=== PATIENT | female | born 1970 | race Caucasian/White ===

== ENCOUNTER 2021-01-25 06:31 | Observation (INO) | payer BC ==
[2021-01-22 11:07] LABS: BLOOD UREA NITROGEN,BUN 14 mg/dL (7.0-18.0); CARBON DIOXIDE,CO2 26.8 mmol/L (21.0-32.0); CHLORIDE,CL 101 mmol/L (98-107); GLUCOSE RANDOM 75 mg/dL (74-106); POTASSIUM,K 4.5 mmol/L (3.5-5.1); SODIUM,NA 137 mmol/L (136-145)
[2021-01-25] MEDS ORDERED: Metoclopramide 10 MG/2 ML SDV IVPUSH PRN (06:59)
[2021-01-25] MEDS ORDERED: Ondansetron 4 MG/2 ML SDV IVPUSH PRN ×2 (06:59→10:06)
[2021-01-25] MEDS ORDERED: Albuterol 0.083% 2.5 MG/3 ML Neb Soln NEB PRN (06:59)
[2021-01-25] MEDS ORDERED: HYDROmorphone 1 MG/ML Syringe IVPUSH PRN (06:59)
[2021-01-25] MEDS ORDERED: fentaNYL 100 MCG/2 ML SDV IVPUSH PRN (06:59)
[2021-01-25] MEDS ORDERED: Naloxone 0.4 MG/ML SDV IVPUSH PRN (06:59)
[2021-01-25] MEDS ORDERED: Morphine 4 MG/ML VIAL IVPUSH PRN (06:59)
[2021-01-25] MEDS ORDERED: Scopolamine 1.5 MG Transdermal Patch ONE (07:08)
--- NOTE | 2021-01-25 07:12 | PCM.PREANE ---
Preanesthetic Assessment - Anesthesia/Transfusion/Family Hx Anesthesia History: Prior Anesthesia Without Reaction Transfusion History: No Prior Transfusion(s) - Review of Systems General: No Symptoms Pulmonary: No Symptoms Cardiovascular: No Symptoms Gastrointestinal: No Symptoms Neurological: No Symptoms Other: Reports: None - Physical Assessment NPO Status Date: 01/25/21 NPO Status Time: 00:00 Vital Signs: Last Vital Signs Temp 98.2 F 01/25/21 06:44 Pulse 51 L 01/25/21 06:44 Resp 14 01/25/21 06:44 BP 134/85 01/25/21 06:44 Pulse Ox 96 01/25/21 06:44 Height: 5 ft 5.25 in Weight: 190 lb Mental Status: Alert & Oriented x3 Dentition: Reports: Normal Dentition Thyro-Mental Finger Breadths: 3 Mouth Opening Finger Breadths: 3 ROM/Head Extension: Full Lungs: Clear to Auscultation, Normal Respiratory Effort Cardiovascular: Regular Rate, Regular Rhythm - Lab Values: Laboratory Last Values WBC 8.41 K/uL (4.0-11.0) 01/22/21 10:17 RBC 4.68 M/uL (4.30-5.90) 01/22/21 10:17 Hgb 14.3 g/dL (12.0-16.0) 01/22/21 10:17 Hct 41.6 % (36.0-46.0) 01/22/21 10:17 MCV 88.9 fL (80.0-98.0) 01/22/21 10:17 MCH 30.6 pg (27.0-32.0) 01/22/21 10:17 MCHC 34.4 g/dL (31.0-37.0) 01/22/21 10:17 RDW Std Deviation 42.6 fl (28.0-62.0) 01/22/21 10:17 RDW Coeff of Darius 13 % (11.0-15.0) 01/22/21 10:17 Plt Count 341 K/uL (150-400) 01/22/21 10:17 MPV 10.50 fL (7.40-12.00) 01/22/21 10:17 Nucleated RBC % 0.0 /100WBC 01/22/21 10:17 Nucleated RBCs # 0 K/uL 01/22/21 10:17 Sodium 137 mmol/L (136-145) 01/22/21 10:13 Potassium 4.5 mmol/L (3.5-5.1) 01/22/21 10:13 Chloride 101 mmol/L (98-107) 01/22/21 10:13 Carbon Dioxide 26.8 mmol/L (21.0-32.0) 01/22/21 10:13 BUN 14 mg/dL (7.0-18.0) 01/22/21 10:13 Creatinine 0.6 mg/dL (0.6-1.0) 01/22/21 10:13 Est Cr Clr Drug Dosing 101.96 mL/min 01/22/21 10:13 Estimated GFR (MDRD) > 60.0 ml/min 01/22/21 10:13 Glucose 75 mg/dL (74-106) 01/22/21 10:13 Calcium 9.1 mg/dL (8.5-10.1) 01/22/21 10:13 HCG, Qual NEGATIVE (NEG) 01/22/21 10:13 Blood Type B POSITIVE 01/22/21 10:13 Antibody Screen NEGATIVE 01/22/21 10:13 - Allergies Allergies/Adverse Reactions: Allergies Allergy/AdvReac Type Severity Reaction Status Date / Time No Known Allergies Allergy Verified 01/25/21 07:01 - Acknowledgements Anesthesia Type Planned: General Anesthesia Pt an Appropriate Candidate for the Planned Anesthesia: Yes Alternatives and Risks of Anesthesia Discussed w Pt/Guardian: Yes Pt/Guardian Understands and Agrees with Anesthesia Plan: Yes PreAnesthesia Questionnaire HEENT History: Reports: Other (See Below) Other HEENT History: wears glasses/contacts Cardiovascular History: Reports: Hypertension Respiratory History: Reports: None Gastrointestinal History: Reports: None Genitourinary History: Reports: Urinary Incontinence FLAT SURFACER History: Reports: Dysfunctional Uterine Bleeding, Musculoskeletal History: Reports: Back Pain, Chronic, Fracture Other Musculoskeletal History: hx of fx right ankle Neurological History: Reports: None Psychiatric History: Reports: Anxiety, Depression Endocrine/Metabolic History: Reports: Obesity/BMI 30+ Hematologic History: Reports: None Immunologic History: Reports: None Oncologic (Cancer) History: Reports: None Dermatologic History: Reports: None - Infectious Disease History Infectious Disease History: Reports: Chicken Pox, Measles - Past Surgical History Head Surgeries/Procedures: Reports: None HEENT Surgical History: Reports: None Cardiovascular Surgical History: Reports: None Respiratory Surgical History: Reports: None GI Surgical History: Reports: Cholecystectomy Female Surgical History: Reports: Breast Reduction Endocrine Surgical History: Reports: None Neurological Surgical History: Reports: None Musculoskeletal Surgical History: Reports: Other (See Below) Other Musculoskeletal Surgeries/Procedures:: excision of shoulder lipoma - SUBSTANCE USE Tobacco Use Status *Q: Never Tobacco User Recreational Drug Use History: Yes Recreational Drug Type: Reports: Marijuana/Hashish - HOME MEDS Home Medications: Home Meds Celecoxib [CeleBREX] 100 mg PO BID 01/19/21 [History] Phentermine HCl 37.5 mg PO DAILY 01/19/21 [History] SUMAtriptan [Imitrex] 100 mg PO ONETIME PRN 01/19/21 [History] Venlafaxine [Venlafaxine HCl ER] 150 mg PO DAILY 01/19/21 [History] amLODIPine [Norvasc] 5 mg PO BEDTIME 01/19/21 [History] valACYclovir [Valtrex] 1,000 mg PO BID PRN 01/19/21 [History] - CURRENT (IN HOUSE) MEDS Current Meds: Current Medications Albuterol (Albuterol 0.083% 2.5 Mg/3 Ml Neb Soln) 2.5 mg NEB ONETIME PRN PRN Reason: Wheezing Droperidol (Droperidol 5 Mg/2 Ml Sdv) 0.625 mg IVPUSH ONETIME PRN PRN Reason: Nausea/Vomiting Fentanyl (Fentanyl 100 Mcg/2 Ml Sdv) 50 mcg IVPUSH Q5M PRN PRN Reason: Pain (mild 1-3) Hydromorphone HCl (Hydromorphone 1 Mg/Ml Syringe) 1 mg IVPUSH Q10M PRN PRN Reason: Pain (moderate 4-6) Lactated Ringer's (Ringers, Lactated) 1,000 mls @ 125 mls/hr IV ASDIRECTED [facility] Last Admin: 01/25/21 07:06 Dose: 125 mls/hr Documented by: Metoclopramide HCl (Metoclopramide 10 Mg/2 Ml Sdv) 10 mg IVPUSH ONETIME PRN PRN Reason: Nausea/Vomiting Morphine Sulfate (Morphine 4 Mg/Ml Vial) 2 mg IVPUSH Q10M PRN PRN Reason: Pain (severe 7-10) Naloxone HCl (Naloxone 0.4 Mg/Ml Sdv) 0.1 mg IVPUSH ASDIRECTED PRN PRN Reason: Respiratory Depression Ondansetron HCl (Ondansetron 4 Mg/2 Ml Sdv) 4 mg IVPUSH ONETIME PRN PRN Reason: Nausea/Vomiting Discontinued Medications Scopolamine (Scopolamine 1.5 Mg Transdermal Patch) Confirm Administered Dose 1.5 mg .ROUTE .[facility] ONE Stop: 01/25/21 07:09
[2021-01-25] MEDS ORDERED: Lactated Ringers 1,000 ML IV SCH (07:15)
[2021-01-25] MEDS ORDERED: Methylene Blue 50 MG/10 ML Ampule ONE (07:19)
[2021-01-25] MEDS ORDERED: Bupivacaine 0.5% 30 ML SDV ONE (07:19)
[2021-01-25] MEDS ORDERED: Bupivacaine 0.25% 10 ML SDV ONE (07:19)
[2021-01-25] MEDS ORDERED: fentaNYL 100 MCG/2 ML SDV ONE (07:21)
[2021-01-25] MEDS ORDERED: Lidocaine 2% 5 ML SDV ONE ×2 (07:21→07:31)
[2021-01-25] MEDS ORDERED: Ondansetron 4 MG/2 ML SDV ONE (07:21)
[2021-01-25] MEDS ORDERED: Propofol 200 MG/20 ML SDV ONE (07:21)
[2021-01-25] MEDS ORDERED: Sugammadex Sodium 200 MG/2 ML VIAL ONE (07:21)
[2021-01-25] MEDS ORDERED: Dexamethasone 4 MG/ML 5 ML MDV ONE (07:21)
[2021-01-25] MEDS ORDERED: Midazolam 1 MG/ML 2 ML SDV ONE (07:21)
[2021-01-25] MEDS ORDERED: Rocuronium Bromide 50 MG/5 ML Syringe ONE (07:21)
[2021-01-25] MEDS ORDERED: Bupivacaine 25%/EPINEPHrine/PF 30 ML ONE (07:54)
[2021-01-25] MEDS ORDERED: ePHEDrine 50 MG/ML SDV ONE (08:26)
[2021-01-25] MEDS ORDERED: HYDROmorphone 2 MG/ML Syringe ONE (08:40)
[2021-01-25] MEDS ORDERED: Fluorescein 5 ML Vial ONE (09:16)
[2021-01-25] MEDS ORDERED: Furosemide 40 MG/4 ML VIAL ONE (09:21)
[2021-01-25] MEDS ORDERED: Lidocaine 1% 20 ML MDV ONE (09:25)
[2021-01-25] MEDS ORDERED: Neomycin/Polymyxin B Bladder Irrigation 1 ML Amp ONE (09:27)
[2021-01-25] MEDS ORDERED: Octyl 2-Cyanoacrylate 1 Tube ONE (09:50)
[2021-01-25] MEDS ORDERED: Ketorolac 30 MG/ML SDV ONE (10:00)
[2021-01-25] MEDS ORDERED: Ketorolac 30 MG/ML SDV IVPUSH ONE (10:06)
[2021-01-25] MEDS ORDERED: Promethazine 25 MG/ML SDV IM PRN (10:06)
[2021-01-25] MEDS ORDERED: Acetaminophen/oxyCODONE 325-5 MG Tab PO PRN (10:06)
[2021-01-25] MEDS ORDERED: SUMAtriptan 50 MG Tab PO PRN (10:09)
--- NOTE | 2021-01-25 10:14 | PCM.OPNOTE ---
- General Post-Op/Procedure Note Date of Surgery/Procedure: 01/25/21 Operative Procedure(s): Total vaginal hysterectomy. Transobturator Mid-Urethral Sling System placement. Cystoscopy Findings: Normal-appearing uterus, ovaries, fallopian tubes Bilateral ureteral efflux Pre Op Diagnosis: 50yo with abnormal uterine bleeding and stress urinary incontinence Post-Op Diagnosis: Same Anesthesia Technique: General ET Tube Primary Surgeon: Karen Barnett Insole Buffer: Rhonda Heredia Pathology: Uterus, cervix Fluid Replacement, Intraop: 1,500 Output, Urine Amount: 150 EBL in mLs: 600 Complications: None Condition: Good Free Text/Narrative:: 2g Ancef IV antibiotic prophylaxis given prior to procedure
--- NOTE | 2021-01-25 10:25 | PCM.POSTAN ---
POST ANESTHESIA ASSESSMENT - MENTAL STATUS Mental Status: Alert, Oriented - VITAL SIGNS Vital Signs: Last Vital Signs Temp 98.2 F 01/25/21 06:44 Pulse 51 L 01/25/21 06:44 Resp 14 01/25/21 06:44 BP 134/85 01/25/21 06:44 Pulse Ox 96 01/25/21 06:44 - RESPIRATORY Respiratory Status: Respiratory Rate WNL, Airway Patent, O2 Saturation Stable - CARDIOVASCULAR CV Status: Pulse Rate WNL, Blood Pressure Stable - GASTROINTESTINAL GI Status: No Symptoms - POST OP HYDRATION Hydration Status: Adequate & Stable
--- NOTE | 2021-01-25 10:26 | PCM48HPAN ---
Post Anesthesia Note - EVALUATION WITHIN 48HRS OF ANESTHETIC Vital Signs in Normal Range: Yes Patient Participated in Evaluation: Yes Respiratory Function Stable: Yes Airway Patent: Yes Cardiovascular Function Stable: Yes Hydration Status Stable: Yes Pain Control Satisfactory: Yes Nausea and Vomiting Control Satisfactory: Yes Mental Status Recovered: Yes Vital Signs: Last Vital Signs Temp 98.2 F 01/25/21 06:44 Pulse 51 L 01/25/21 06:44 Resp 14 01/25/21 06:44 BP 134/85 01/25/21 06:44 Pulse Ox 96 01/25/21 06:44
[2021-01-25] MEDS: Acetaminophen/oxyCODONE 325-5 MG Tab PO PRN ×3 (11:28→21:55)
[2021-01-25] MEDS: Morphine 4 MG/ML VIAL IVPUSH PRN ×2 (12:30→14:40)
[2021-01-25] MEDS ORDERED: Ketorolac 30 MG/ML SDV IVPUSH PRN (16:00)
--- NOTE | 2021-01-25 17:12 | PCM.SN.2 ---
- Free Text/Narrative Note: Patient currently sleeping. Per RN, pain has been well controlled. She has ambulated in her room. Small amount of bleeding. Has had water without nausea. Plan voiding trial and labs in AM. Encourage ambulation overnight.
[2021-01-25] MEDS ORDERED: Venlafaxine 75 MG Cap.ER PO SCH ×2 (20:00→21:00)
[2021-01-25] MEDS: Docusate Sodium 100 MG Cap PO SCH (20:24)
[2021-01-25] MEDS ORDERED: amLODIPine 5 MG Tab PO SCH (21:00)
[2021-01-26] MEDS: Acetaminophen/oxyCODONE 325-5 MG Tab PO PRN (04:39)
[2021-01-26 07:19] LABS: BLOOD UREA NITROGEN,BUN 8 mg/dL (7.0-18.0); CARBON DIOXIDE,CO2 28.8 mmol/L (21.0-32.0); CHLORIDE,CL 101 mmol/L (98-107); GLUCOSE RANDOM 93 mg/dL (74-106); POTASSIUM,K 4.4 mmol/L (3.5-5.1); SODIUM,NA 136 mmol/L (136-145)
--- NOTE | 2021-01-26 07:44 | OR ---
SURGEON: Karen Barnett MD DATE OF PROCEDURE: 01/25/2021 PREOPERATIVE DIAGNOSES: 1. Abnormal uterine bleeding. 2. Stress urinary incontinence. POSTOPERATIVE DIAGNOSES: 1. Abnormal uterine bleeding. 2. Stress urinary incontinence. PROCEDURE: 1. Total vaginal hysterectomy. 2. Cystoscopy. 3. Transobturator vaginal taping, Obtryx II system. PRIMARY SURGEON: Karen Barnett MD. GOVERNMENT PROGRAM MANAGER: Rhonda Heredia MD ANESTHESIA: General endotracheal. COMPLICATIONS: None. ESTIMATED BLOOD LOSS: 600 mL. URINE OUTPUT: 150 mL. ANTIBIOTICS: 2 g of Ancef IV. IV FLUIDS: 1500 mL LR. FINDIN. Normal-appearing uterus, ovaries, and fallopian tubes. 2. Bilateral ureteral efflux. PROCEDURE IN DETAIL: Risks, benefits, and alternatives of the procedure were reviewed with the patient prior to the procedure. The patient was taken to the operating room with IV fluids running. General anesthesia was obtained without difficulty. She was placed in dorsal lithotomy position with legs in Yellofins stirrups. She was prepared and draped in normal sterile fashion. Garrido catheter was inserted. A weighted speculum was inserted into the vagina, and the cervix grasped with a Alaina tenaculum. The cervix was circumferentially incised with the Bovie and the bladder dissected off pubovesicocervical fascia anteriorly with an open sponge. The posterior cul-de-sac was entered sharply using curved Light scissors without difficulty. The anterior cul-de-sac was then entered sharply using the Metzenbaum scissors. At this point, a Patricia clamp was placed over the uterosacral ligament on either side. These were then transected and suture ligated with 2-0 Vicryl suture. The cardinal ligaments were then clamped on both sides, transected and suture ligated in a similar fashion. The right uterine artery was transected and noted to be bleeding. This was grasped with an additional Patricia clamp and incorporated into the next bite of the broad ligament. Hemostasis was thus obtained. Both cornu were then clamped with Patricia clamps, transected and the uterus delivered through the vagina. These pedicles were then suture ligated with 0 Vicryl suture, good hemostasis was noted. The ovaries and fallopian tubes appeared normal. The vaginal cuff angles were transfixed to the uterosacral ligament. The vaginal cuff was closed with a vertical running lock stitch of 0 Vicryl suture. All instruments were removed from the vagina. A 70-degree cystoscope was introduced through the urethra into the bladder. The ureteral orifices were noted bilaterally to efflux fluorescein-stained urine. Systematic inspection of bladder was completed and there were no obvious lesions. Along the adductor longus muscle, directly below this was seen and was palpated in the symphysis pubis and was marked with marking pen on the either side. Region was now infiltrated with 1% lidocaine and 0.25% bupivacaine diluted in saline. This region along with the region directly behind the pubic bone was now infiltrated with local anesthetic. The vagina directly below the urethral meatus was grasped with an Allis clamp and was infiltrated with local anesthetic as well as in the periurethral spaces. Approximately 1.5 cm midline vaginal incision was made using the scalpel and incisions were created over the region of the markings done on either side with an 11 blade scalpel. The periurethral space on either side was dissected sharply and bluntly until medial aspect of the bone was palpated. The right finger was introduced into the right vaginal incision until the medial aspect of the pubic bone was palpated and the Obtryx introduced, it was aligned with the right groin incision. Introducer was placed through the incision perforating transobturator membrane and muscle rotating behind the pubic bone and exiting through the right side of the vaginal incision. The sulcus was inspected and found to be intact. In a similar fashion, this was performed on the patient's left side. Once again, sulcus was inspected, found to be intact. The tape on either side was now irrigated with Neosporin saline solution. The stabilizer was clipped and trimmed midline. Overlying sheaths were removed. The tape was tented downward in the midline with gently tightening. The bladder was back filled with 240 mL of saline. The catheter was removed, with Valsalva, I was able to gently tighten the tape until the leakage was no longer evident. Once the tube was felt to be satisfactorily tightened, the edges were trimmed at the groin. The area over the urethra was inspected and no perforation was noted. The vaginal mucosa was reapproximated using 2-0 Vicryl suture in a continuous running locked fashion. The edges of the groin incision were reapproximated using Dermabond. The Garrido catheter was replaced. Sponge, instrument, and needle counts were correct x2. The patient was awakened and taken to the recovery room in stable condition. [id number] / MODL /[id number] MTDD
[2021-01-26] MEDS: Docusate Sodium 100 MG Cap PO SCH (08:05)
--- NOTE | 2021-01-26 08:41 | PCM.PN ---
- General Info Date of Service: 01/26/21 Subjective Update: Patient doing well this morning. Passed voiding trial. Pain well controlled, tolerating oral intake. Minimal vaginal bleeding. Ambulating in room without dizziness. Functional Status: Reports: Pain Controlled, Tolerating Diet, Ambulating, Urinating - Review of Systems General: Reports: No Symptoms HEENT: Reports: No Symptoms Pulmonary: Reports: No Symptoms Cardiovascular: Reports: No Symptoms Gastrointestinal: Reports: No Symptoms Genitourinary: Reports: No Symptoms Musculoskeletal: Reports: No Symptoms Skin: Reports: No Symptoms Neurological: Reports: No Symptoms Psychiatric: Reports: No Symptoms - Patient Data Vitals - Most Recent: Last Vital Signs Temp 36.7 C 01/26/21 07:16 Pulse 52 L 01/26/21 07:16 Resp 18 01/26/21 07:16 BP 110/60 01/26/21 07:16 Pulse Ox 95 01/26/21 07:16 Weight - Most Recent: 86.183 kg I&O - Last 24 Hours: Intake & Output 01/25/21 01/26/21 01/26/21 22:59 06:59 14:59 Output Total 400 1075 Balance -400 -1075 Lab Results Last 24 Hours: Laboratory Results - last 24 hr 01/26/21 01/26/21 Range/Units 06:15 06:15 WBC 15.32 H (4.0-11.0) K/uL RBC 3.73 L (4.30-5.90) M/uL Hgb 11.3 L (12.0-16.0) g/dL Hct 33.6 L (36.0-46.0) % MCV 90.1 (80.0-98.0) fL MCH 30.3 (27.0-32.0) pg MCHC 33.6 (31.0-37.0) g/dL RDW Std Deviation 43.9 (28.0-62.0) fl RDW Coeff of Darius 13 (11.0-15.0) % Plt Count 313 (150-400) K/uL MPV 10.30 (7.40-12.00) fL Neut % (Auto) 80.2 H (48.0-80.0) % Lymph % (Auto) 13.4 L (16.0-40.0) % [place] % (Auto) 6.3 (0.0-15.0) % Eos % (Auto) 0.1 (0.0-7.0) % Baso % (Auto) 0.0 (0.0-1.5) % Neut # (Auto) 12.3 H (1.4-5.7) K/uL Lymph # (Auto) 2.1 (0.6-2.4) K/uL [place] # (Auto) 1.0 H (0.0-0.8) K/uL Eos # (Auto) 0.0 (0.0-0.7) K/uL Baso # (Auto) 0.0 (0.0-0.1) K/uL Nucleated RBC % 0.0 /100WBC Nucleated RBCs # 0 K/uL Sodium 136 (136-145) mmol/L Potassium 4.4 (3.5-5.1) mmol/L Chloride 101 (98-107) mmol/L Carbon Dioxide 28.8 (21.0-32.0) mmol/L BUN 8 (7.0-18.0) mg/dL Creatinine 0.7 (0.6-1.0) mg/dL Est Cr Clr Drug Dosing 87.39 mL/min Estimated GFR (MDRD) > 60.0 ml/min Glucose 93 (74-106) mg/dL Calcium 8.3 L (8.5-10.1) mg/dL Med Orders - Current: Current Medications Amlodipine Besylate (Amlodipine 5 Mg Tab) 5 mg PO BEDTIME [facility] Last Admin: 01/25/21 20:23 Dose: 5 mg Documented by: Docusate Sodium (Docusate Sodium 100 Mg Cap) 100 mg PO BID [facility] Last Admin: 01/26/21 08:05 Dose: 100 mg Documented by: Ibuprofen (Ibuprofen 800 Mg Tab) 800 mg PO Q8H PRN PRN Reason: Pain (mild 1-3) Ketorolac Tromethamine (Ketorolac 30 Mg/Ml Sdv) 30 mg IVPUSH Q6H PRN PRN Reason: Pain (severe 7-10) Stop: 01/30/21 16:01 Last Admin: 01/25/21 15:40 Dose: 30 mg Documented by: Morphine Sulfate (Morphine 4 Mg/Ml Vial) 4 mg IVPUSH Q2H PRN PRN Reason: Pain (severe 7-10) Last Admin: 01/25/21 14:40 Dose: 4 mg Documented by: Ondansetron HCl (Ondansetron 4 Mg/2 Ml Sdv) 4 mg IVPUSH Q6H PRN PRN Reason: Nausea/Vomiting Oxycodone/Acetaminophen (Acetaminophen/Oxycodone 325-5 Mg Tab) 1 tab PO Q4H PRN PRN Reason: Pain (moderate 4-6) Oxycodone/Acetaminophen (Acetaminophen/Oxycodone 325-5 Mg Tab) 2 tab PO Q4H PRN PRN Reason: Pain (moderate 4-6) Last Admin: 01/26/21 04:39 Dose: 2 tab Documented by: Promethazine HCl (Promethazine 25 Mg/Ml Sdv) 25 mg IM Q6H PRN PRN Reason: Nausea/Vomiting Sumatriptan Succinate (Sumatriptan 50 Mg Tab) 100 mg PO ONETIME PRN PRN Reason: migraine Venlafaxine HCl (Venlafaxine 75 Mg Cap.Er) 150 mg PO BEDTIME [facility] Last Admin: 01/25/21 20:23 Dose: 150 mg Documented by: Discontinued Medications Albuterol (Albuterol 0.083% 2.5 Mg/3 Ml Neb Soln) 2.5 mg NEB ONETIME PRN PRN Reason: Wheezing Bupivacaine HCl (Bupivacaine 0.25% 10 Ml Sdv) Confirm Administered Dose 10 ml .ROUTE .STK-MED ONE Stop: 01/25/21 07:20 Bupivacaine HCl (Bupivacaine 0.5% 30 Ml Sdv) Confirm Administered Dose 30 ml .ROUTE .STK-MED ONE Stop: 01/25/21 07:20 Dexamethasone (Dexamethasone 4 Mg/Ml 5 Ml Mdv) Confirm Administered Dose 20 mg . ROUTE .STK-MED ONE Stop: 01/25/21 07:22 Droperidol (Droperidol 5 Mg/2 Ml Sdv) 0.625 mg IVPUSH ONETIME PRN PRN Reason: Nausea/Vomiting Ephedrine Sulfate (Ephedrine 50 Mg/Ml Sdv) Confirm Administered Dose 50 mg .ROUTE .STK-MED ONE Stop: 01/25/21 08:27 Fentanyl (Fentanyl 100 Mcg/2 Ml Sdv) 50 mcg IVPUSH Q5M PRN PRN Reason: Pain (mild 1-3) Fentanyl (Fentanyl 100 Mcg/2 Ml Sdv) Confirm Administered Dose 200 mcg .ROUTE .STK-MED ONE Stop: 01/25/21 07:22 Fluorescein Sodium (Fluorescein 5 Ml Vial) Confirm Administered Dose 5 ml .ROUTE .STK-MED ONE Stop: 01/25/21 09:17 Furosemide (Furosemide 40 Mg/4 Ml Vial) Confirm Administered Dose 40 mg .ROUTE .STK-MED ONE Stop: 01/25/21 09:22 Hydromorphone HCl (Hydromorphone 1 Mg/Ml Syringe) 1 mg IVPUSH Q10M PRN PRN Reason: Pain (moderate 4-6) Hydromorphone HCl (Hydromorphone 2 Mg/Ml Syringe) Confirm Administered Dose 2 mg .ROUTE .STK-MED ONE Stop: 01/25/21 08:41 Lactated Ringer's (Ringers, Lactated) 1,000 mls @ 125 mls/hr IV ASDIRECTED [facility] Last Admin: 01/25/21 07:06 Dose: 125 mls/hr Documented by: Cefazolin Sodium/Dextrose (Ancef) Confirm Administered Dose 50 mls @ as directed .ROUTE .STK-MED ONE Stop: 01/25/21 07:22 Acetaminophen (Ofirmev 1000 Mg/100 Ml) Confirm Administered Dose 100 mls @ as directed .ROUTE .STK-MED ONE Stop: 01/25/21 07:22 Bupivacaine HCl/Epinephrine Bitart (Sensorc Mpf 0.25%-Epi 1:[id number]) Confirm Administered Dose 30 mls @ as directed .ROUTE .STK-MED ONE Stop: 01/25/21 07:55 Ketorolac Tromethamine (Ketorolac 30 Mg/Ml Sdv) Confirm Administered Dose 30 mg .ROUTE .STK-MED ONE Stop: 01/25/21 10:01 Ketorolac Tromethamine (Ketorolac 30 Mg/Ml Sdv) 30 mg IVPUSH ONETIME ONE Stop: 01/25/21 10:07 Last Admin: 01/25/21 19:03 Dose: Not Given Documented by: Lidocaine (Lidocaine 2% 5 Ml Sdv) Confirm Administered Dose 5 ml .ROUTE .STK-MED ONE Stop: 01/25/21 07:22 Lidocaine (Lidocaine 2% 5 Ml Sdv) Confirm Administered Dose 5 ml .ROUTE .STK-MED ONE Stop: 01/25/21 07:32 Lidocaine HCl (Lidocaine 1% 20 Ml Mdv) Confirm Administered Dose 20 ml .ROUTE .STK-MED ONE Stop: 01/25/21 09:26 Methylene Blue (Methylene Blue 50 Mg/10 Ml Ampule) Confirm Administered Dose 50 mg .ROUTE .STK-MED ONE Stop: 01/25/21 07:20 Metoclopramide HCl (Metoclopramide 10 Mg/2 Ml Sdv) 10 mg IVPUSH ONETIME PRN PRN Reason: Nausea/Vomiting Midazolam HCl (Midazolam 1 Mg/Ml 2 Ml Sdv) Confirm Administered Dose 2 mg .ROUTE .STK-MED ONE Stop: 01/25/21 07:22 Morphine Sulfate (Morphine 4 Mg/Ml Vial) 2 mg IVPUSH Q10M PRN PRN Reason: Pain (severe 7-10) Naloxone HCl (Naloxone 0.4 Mg/Ml Sdv) 0.1 mg IVPUSH ASDIRECTED PRN PRN Reason: Respiratory Depression Neomycin/Polymyxin (Neomycin/Polymyxin B Bladder Irrigation 1 Ml Amp) Confirm Administered Dose 1 ml .ROUTE .STK-MED ONE Stop: 01/25/21 09:28 Octyl Cyanoacrylate (Octyl 2-Cyanoacrylate 1 Tube) Confirm Administered Dose 1 applic .ROUTE .STK-MED ONE Stop: 01/25/21 09:51 Ondansetron HCl (Ondansetron 4 Mg/2 Ml Sdv) 4 mg IVPUSH ONETIME PRN PRN Reason: Nausea/Vomiting Ondansetron HCl (Ondansetron 4 Mg/2 Ml Sdv) Confirm Administered Dose 4 mg .ROUTE .STK-MED ONE Stop: 01/25/21 07:22 Propofol (Propofol 200 Mg/20 Ml Sdv) Confirm Administered Dose 200 mg .ROUTE .STK-MED ONE Stop: 01/25/21 07:22 Rocuronium Murray (Rocuronium Murray 50 Mg/5 Ml Syringe) Confirm Administered Dose 50 mg .ROUTE .STK-MED ONE Stop: 01/25/21 07:22 Scopolamine (Scopolamine 1.5 Mg Transdermal Patch) Confirm Administered Dose 1.5 mg .ROUTE .STK-MED ONE Stop: 01/25/21 07:09 Last Admin: 01/25/21 19:48 Dose: Not Given Documented by: Sugammadex Sodium (Sugammadex Sodium 200 Mg/2 Ml Vial) Confirm Administered Dose 200 mg .ROUTE .STK-MED ONE Stop: 01/25/21 07:22 Venlafaxine HCl (Venlafaxine 75 Mg Cap.Er) 150 mg PO DAILY [facility] Venlafaxine HCl (Venlafaxine 75 Mg Cap.Er) 150 mg PO DAILY [facility] - Exam General: Alert, Oriented Neck: Supple Lungs: Normal Respiratory Effort GI/Abdominal Exam: Soft, Non-Tender, No Distention Extremities: No Pedal Edema Skin: Warm, Dry, Intact Neurological: No New Focal Deficit Psy/Mental Status: Alert, Normal Affect, Normal Mood - Patient Data Lab Results Last 24 hrs: Laboratory Results - last 24 hr 01/26/21 01/26/21 Range/Units 06:15 06:15 WBC 15.32 H (4.0-11.0) K/uL RBC 3.73 L (4.30-5.90) M/uL Hgb 11.3 L (12.0-16.0) g/dL Hct 33.6 L (36.0-46.0) % MCV 90.1 (80.0-98.0) fL MCH 30.3 (27.0-32.0) pg MCHC 33.6 (31.0-37.0) g/dL RDW Std Deviation 43.9 (28.0-62.0) fl RDW Coeff of Darius 13 (11.0-15.0) % Plt Count 313 (150-400) K/uL MPV 10.30 (7.40-12.00) fL Neut % (Auto) 80.2 H (48.0-80.0) % Lymph % (Auto) 13.4 L (16.0-40.0) % [place] % (Auto) 6.3 (0.0-15.0) % Eos % (Auto) 0.1 (0.0-7.0) % Baso % (Auto) 0.0 (0.0-1.5) % Neut # (Auto) 12.3 H (1.4-5.7) K/uL Lymph # (Auto) 2.1 (0.6-2.4) K/uL [place] # (Auto) 1.0 H (0.0-0.8) K/uL Eos # (Auto) 0.0 (0.0-0.7) K/uL Baso # (Auto) 0.0 (0.0-0.1) K/uL Nucleated RBC % 0.0 /100WBC Nucleated RBCs # 0 K/uL Sodium 136 (136-145) mmol/L Potassium 4.4 (3.5-5.1) mmol/L Chloride 101 (98-107) mmol/L Carbon Dioxide 28.8 (21.0-32.0) mmol/L BUN 8 (7.0-18.0) mg/dL Creatinine 0.7 (0.6-1.0) mg/dL Est Cr Clr Drug Dosing 87.39 mL/min Estimated GFR (MDRD) > 60.0 ml/min Glucose 93 (74-106) mg/dL Calcium 8.3 L (8.5-10.1) mg/dL Result Diagrams: 01/26/21 06:15 01/26/21 06:15 Sepsis Event Note - Evaluation Sepsis Screening Result: No Definite Risk - Focused Exam Vital Signs: Vital Signs Temp Pulse Resp BP Pulse Ox 01/26/21 07:16 36.7 C 52 L 18 110/60 95 01/26/21 04:00 36.6 C 58 L 16 108/52 L 96 01/25/21 23:57 36.6 C 81 16 121/59 L 100 - Problem List & Annotations (1) Abnormal uterine bleeding SNOMED Code(s): 08501370164804 Code(s): N93.9 - ABNORMAL UTERINE AND VAGINAL BLEEDING, UNSPECIFIED Status: Acute Current Visit: Yes (2) Stress incontinence of urine SNOMED Code(s): 27138082 Code(s): N39.3 - STRESS INCONTINENCE (FEMALE) (MALE) Status: Acute C urrent Visit: Yes - Problem List Review Problem List Initiated/Reviewed/Updated: Yes - My Orders Last 24 Hours: My Active Orders 01/25/21 10:06 May Shower [RC] ASDIRECTED Acetaminophen/oxyCODONE [Percocet 325-5 MG] 1 tab PO Q4H PRN Acetaminophen/oxyCODONE [Percocet 325-5 MG] 2 tab PO Q4H PRN Morphine 4 mg IVPUSH Q2H PRN Ondansetron [Zofran] 4 mg IVPUSH Q6H PRN Promethazine [Phenergan] 25 mg IM Q6H PRN Resuscitation Status Routine 01/25/21 10:07 Patient Status [ADT] Routine Antiembolic Devices [RC] PER UNIT ROUTINE Intake and Output [RC] PER UNIT ROUTINE Notify Provider Vital Signs [RC] ASDIRECTED Oxygen Therapy [RC] ASDIRECTED RT Incentive Spirometry [RC] Q2HWA Vital Signs [RC] Q4H Peripheral IV Discontinue [OM.PC] Routine Sequential Compression Device [OM.PC] Per Unit Routine 01/25/21 10:09 SUMAtriptan [Imitrex] 100 mg PO ONETIME PRN 01/25/21 Lunch Regular Diet [DIET] 01/25/21 16:00 Ketorolac [Toradol] 30 mg IVPUSH Q6H PRN 01/25/21 21:00 Docusate Sodium [Colace] 100 mg PO BID Venlafaxine [Effexor XR] 150 mg PO BEDTIME amLODIPine [Norvasc] 5 mg PO BEDTIME 01/26/21 08:38 Ready for Discharge [RC] PER UNIT ROUTINE 01/26/21 22:30 Ibuprofen [Motrin] 800 mg PO Q8H PRN - Assessment Assessment:: 50yo s/p total vaginal hysterectomy, cystoscopy, and transobturator tape placement, POD#1 - Plan Plan:: Continue routine post-operative care. Encourage ambulation today. Discharge home today, reviewed discharge instructions/precautions. All questions answered.
[2021-01-26] MEDS ORDERED: Venlafaxine 75 MG Cap.ER PO SCH (09:00)
[2021-01-26] MEDS ORDERED: Ibuprofen 800 MG Tab PO PRN (22:30)
== END 2021-01-26 09:46 | disposition home or self-care (01) ==
LOC: MW.SDS 06:31 → MW.OB 10:07
PROVIDERS: ADMIT Obstetrics & Gynecology; ATTEND Obstetrics & Gynecology
DX: D25.9 Leiomyoma of uterus, unspecified (principal); N39.46 Mixed incontinence; N84.0 Polyp of corpus uteri; Z79.899 Other long term (current) drug therapy; I10 Essential (primary) hypertension; F32.9 Major depressive disorder, single episode, unspecified
CPT/HCPCS: 36415; 57288; 58260; 80048; 84703; 85025; 85027; 86850; 86900; 86901; A9270; J0131; J0690; J1100; J1170; J1885; J1940; J2250; J2270; J2704; J3010; J3490; J7120; 00944; J2405

== ENCOUNTER 2023-01-16 00:19 | Emergency (ER) | payer BC ==
[2023-01-16 00:46] LABS: BASOPHILS ABSOLUTE AUTO 0.04 K/uL (0.00-0.20); BASOPHILS PERCENT AUTO 0.5 % (0.0-1.0); EOSINOPHILS ABSOLUTE AUTO 0.24 K/uL (0.00-0.45); EOSINOPHILS PERCENT AUTO 2.9 % (0.0-6.0); HEMATOCRIT 35.2 % (37.0-47.0); HEMOGLOBIN 12.8 g/dL (12.0-16.0); IMMATURE GRAN ABSOLUTE AUTO 0.02 K/uL (0.00-0.05); IMMATURE GRAN PERCENT AUTO 0.2 % (0.0-0.4); LYMPHOCYTES ABSOLUTE AUTO 2.85 K/uL (1.00-4.80); LYMPHOCYTES PERCENT AUTO 34.2 % (24.0-44.0); MEAN CORPUSCULAR HEMOGLOBIN 32.1 pg (28.0-32.0); MEAN CORPUSCULAR HGB CONC 36.4 g/dL (32.0-36.0); MEAN CORPUSCULAR VOLUME 88.2 fL (83.0-99.0); MEAN PLATELET VOLUME 9.8 fL (9.4-12.3); MONOCYTES ABSOLUTE AUTO 0.52 K/uL (0.00-0.80); MONOCYTES PERCENT AUTO 6.2 % (0.0-8.0); NEUTROPHILS ABSOLUTE AUTO 4.66 K/uL (1.80-7.70); PLATELET COUNT,PLT 279 K/uL (150-400); RED BLOOD CELL COUNT 3.99 M/uL (4.10-5.30); WHITE BLOOD CELL COUNT,WBC 8.33 K/uL (3.9-11.3)
[2023-01-16 01:08] LABS: CORONAVIRUS COVID-19 NAA NEGATIVE (NEGATIVE); INFLUENZA A NAA NEGATIVE (NEGATIVE); INFLUENZA B NAA NEGATIVE (NEGATIVE); RESPIRATORY SYNCYTIAL VIR NAA NEGATIVE (NEGATIVE)
[2023-01-16 01:11] LABS: A/G RATIO 0.9 (0.9-1.6); ALANINE AMINOTRANSFERASE,ALT 16 IU/L (14-63); ALBUMIN 3.1 g/dL (3.4-5.0); ALKALINE PHOSPHATASE 103 U/L (46-116); ASPARTATE AMNIOTRANSFERASE,AST 12 IU/L (15-37); BILIRUBIN TOTAL 0.2 mg/dL (0.2-1.0); BLOOD UREA NITROGEN,BUN 15 mg/dL (7.0-18.0); CALCIUM 8.4 mg/dL (8.5-10.1); CARBON DIOXIDE,CO2 26.7 mmol/L (21.0-32.0); CHLORIDE,CL 103 mmol/L (98-107); CREATININE 0.8 mg/dL (0.6-1.0); EST CRCL DRUG DOSING (CG) 77.01 mL/min; GLUCOSE RANDOM 107 mg/dL (74-106); LIPASE 53 U/L (16-77); POTASSIUM,K 3.7 mmol/L (3.5-5.1); PROTEIN TOTAL,TP 6.5 g/dL (6.4-8.2); SODIUM,NA 137 mmol/L (136-145)
[2023-01-16 01:15] LABS: ESTIMATED GFR 89 mL/min (>60)
[2023-01-16] MEDS ORDERED: Azithromycin 250 MG Tab PO ONE (01:16)
== END 2023-01-16 01:25 | disposition home or self-care (01) ==
LOC: MW.ED 00:19
DX: R05.9 Cough, unspecified (principal); R06.00 Dyspnea, unspecified; I10 Essential (primary) hypertension; E66.9 Obesity, unspecified; Z68.32 Body mass index [BMI] 32.0-32.9, adult; Z79.899 Other long term (current) drug therapy; Z20.822 Contact with and (suspected) exposure to COVID-19
CPT/HCPCS: 0241U; 36415; 71045; 80053; 83690; 84484; 85025; 93005; 99285; A9270; 93010; 99282